=== PATIENT | female | born 1945 | race Caucasian/White ===

== ENCOUNTER 2018-12-06 07:35 | Emergency (ER) | payer OTHER ==
[2018-12-06] MEDS ORDERED: KETOROLAC 30 MG/ML INJ ONE (08:17)
[2018-12-06] MEDS ORDERED: HYDROCODONE/APAP 5/325 MG TAB ONE (08:17)
--- NOTE | 2018-12-06 09:26 | ER ---
Nurse's Notes [facility] Name: Sierra Norton Age: 73 yrs Sex: Female : 1945 Arrival Date: 12/06/2018 Time: 07:37 Bed 18 Private MD: Diagnosis: Radiculopathy, lumbar region Presentation: 12/06 07:50 Presenting complaint: Patient states: right hip pain radiating down front of right leg iw since yesterday, bent over to empty litter box and had increasing pain, had difficulty standing upright, also has intermittent numbness to right leg. Transition of care: patient was not received from another setting of care. Onset of symptoms was December 05, 2018. Risk Assessment: Do you want to hurt yourself or someone else? Patient reports no desire to harm self or others. Initial Sepsis Screen: Does the patient meet any 2 criteria? No. Patient's initial sepsis screen is negative. Does the patient have a suspected source of infection? No. Patient's initial sepsis screen is negative. Care prior to arrival: None. 07:50 Method Of Arrival: Ambulatory iw 07:50 Acuity: ADELIA 4 iw Historical: - Allergies: 07:54 No Known Allergies; iw - Home Meds: 07:54 biotin 10,000 mcg oral cap daily [Active]; Lipitor 40 mg Oral tab 1 tab once daily iw [Active]; gabapentin 300 mg oral cap 1 cap 3 times per day [Active]; duloxetine 30 mg oral cpDR 1 cap once daily [Active]; losartan 100 mg oral tab 1 tab once daily [Active]; amlodipine 2.5 mg tab 1 tab once daily [Active]; bisoprolol-hydrochlorothiazide 10-6.25 mg oral tab 1 tab once daily [Active]; - PMHx: 07:54 Hypertension; Hyperlipidemia; breast cancer; iw - PSHx: 07:54 double mastectomy; Knee surgery; Hysterectomy; iw - Immunization history:: Adult Immunizations. - Social history:: Smoking status: Patient/guardian denies using tobacco. - Ebola Screening: : Patient negative for fever greater than or equal to 101.5 degrees Fahrenheit, and additional compatible Ebola Virus Disease symptoms Patient denies exposure to infectious person Patient denies travel to an Ebola-affected area in the 21 days before illness onset No symptoms or risks identified at this time. Screenin:59 Abuse screen: Denies threats or abuse. Nutritional screening: No deficits noted. em Tuberculosis screening: No symptoms or risk factors identified. Fall Risk None identified. Assessment: 07:59 General: Appears in no apparent distress. uncomfortable, Behavior is calm, cooperative. em Pain: Complains of pain in right low back Pain radiates to right leg Pain currently is 10 out of 10 on a pain scale. Quality of pain is described as sharp, shooting. Neuro: Level of Consciousness is awake, alert, obeys commands, Oriented to person, place, time, situation, Appropriate for age Reports numbness in right leg. Cardiovascular: Capillary refill < 3 seconds Patient's skin is warm and dry. Respiratory: Airway is patent Respiratory effort is even, unlabored, Respiratory pattern is regular, symmetrical. Derm: Skin is intact, is healthy with good turgor, Skin is pink, warm \T\ dry. Musculoskeletal: Capillary refill < 3 seconds, Range of motion: intact in all extremities, Reports numbness in right leg. 08:20 Reassessment: Patient appears in no apparent distress at this time. I agree with above iw assessment by Terence Chaudhary LVN. 08:40 Reassessment: Patient appears in no apparent distress at this time. Patient and/or em family updated on plan of care and expected duration. Pain level reassessed. Patient is alert, oriented x 3, equal unlabored respirations, skin warm/dry/pink. Patient states feeling better. Vital Signs: 07:47 BP 145 / 91; Pulse 74; Resp 18; Pulse Ox 100% on R/A; Pain 10/10; em1 08:40 BP 138 / 87; Pulse 79; Resp 18; Pulse Ox 100% on R/A; Pain 8/10; em ED Course: 07:37 Patient arrived in ED. as 07:42 Aram Murphy MD is Attending Physician. gs 07:47 Terence Chaudhary LVN is Primary Nurse. em 07:52 Triage completed. iw 07:54 Arm band placed on. iw 07:59 Patient has correct armband on for positive identification. Placed in gown. Bed in low em position. Call light in reach. Adult w/ patient. Pulse ox on. NIBP on. 09:23 Herbert Barajas MD is Referral Physician. gs 09:32 No provider procedures requiring assistance completed. Patient did not have IV access em during this emergency room visit. Administered Medications: 08:07 Drug: TORadol 30 mg Route: IM; Site: left deltoid; em 08:40 Follow up: Response: No adverse reaction; Pain is decreased em 08:07 Drug: [place] 5 mg-325 mg 1 tabs Route: PO; em 08:40 Follow up: Response: No adverse reaction; Pain is decreased em Outcome: :25 Discharge ordered by . gs 09:32 Discharged to home ambulatory, with family. em 09:32 Condition: good 09:32 Discharge instructions given to patient, family, Instructed on discharge instructions, follow up and referral plans. medication usage, Demonstrated understanding of instructions, follow-up care, medications, Prescriptions given X 2. 09:35 Patient left the ED. em Signatures: Terence Chaudhary, SUPERVISOR MODERN [employer]ANGUAGES SUPERVISOR [employer]ERN LANGUAGES em Odilia Estes Irene, LOLITA RN Franklyn, Julio em1 Aram Murphy MD MD
--- NOTE | 2018-12-06 09:26 | EDPHYS ---
Physician Documentation [facility] Name: Sierra Norton Age: 73 yrs Sex: Female : 1945 Arrival Date: 12/06/2018 Time: 07:37 Bed 18 Private MD: ED Physician Aram Murphy HPI: 12/06 08:45 This 73 yrs old Female presents to ER via Ambulatory with complaints of Hip gs Pain. 08:48 The patient or guardian reports pain. The patient is able to self ambulate. The gs complaints affect the right leg and right low back. Onset: The symptoms/episode began/occurred yesterday. Modifying factors: the symptoms are aggravated by any movement. Associated signs and symptoms: Pertinent positives: numbness, of the right quadriceps. Severity of symptoms: At their worst the symptoms were moderate, in the emergency department the symptoms are unchanged. The patient has not experienced similar symptoms in the past. The patient has been recently seen by a physician: the patient's primary care provider, with different complaint(s). Historical: - Allergies: 07:54 No Known Allergies; iw - Home Meds: 07:54 biotin 10,000 mcg oral cap daily [Active]; Lipitor 40 mg Oral tab 1 tab once daily iw [Active]; gabapentin 300 mg oral cap 1 cap 3 times per day [Active]; duloxetine 30 mg oral cpDR 1 cap once daily [Active]; losartan 100 mg oral tab 1 tab once daily [Active]; amlodipine 2.5 mg tab 1 tab once daily [Active]; bisoprolol-hydrochlorothiazide 10-6.25 mg oral tab 1 tab once daily [Active]; - PMHx: 07:54 Hypertension; Hyperlipidemia; breast cancer; iw - PSHx: 07:54 double mastectomy; Knee surgery; Hysterectomy; iw - Immunization history:: Adult Immunizations. - Social history:: Smoking status: Patient/guardian denies using tobacco. - Ebola Screening: : Patient negative for fever greater than or equal to 101.5 degrees Fahrenheit, and additional compatible Ebola Virus Disease symptoms Patient denies exposure to infectious person Patient denies travel to an Ebola-affected area in the 21 days before illness onset No symptoms or risks identified at this time. ROS: 08:48 All other systems are negative. gs 08:48 Abdomen/GI: Negative for bowel incontinence. gs 08:48 : Negative for bladder incontinence. Exam: 08:48 Head/Face: Normocephalic, atraumatic. Eyes: Pupils equal round and reactive to light, gs extra-ocular motions intact. Lids and lashes normal. Conjunctiva and sclera are non-icteric and not injected. Cornea within normal limits. Periorbital areas with no swelling, redness, or edema. ENT: Nares patent. No nasal discharge, no septal abnormalities noted. Tympanic membranes are normal and external auditory canals are clear. Oropharynx with no redness, swelling, or masses, exudates, or evidence of obstruction, uvula midline. Mucous membranes moist. Neck: Trachea midline, no thyromegaly or masses palpated, and no cervical lymphadenopathy. Supple, full range of motion without nuchal rigidity, or vertebral point tenderness. No Meningismus. Chest/axilla: Normal chest wall appearance and motion. Nontender with no deformity. No lesions are appreciated. Cardiovascular: Regular rate and rhythm with a normal S1 and S2. No gallops, murmurs, or rubs. Normal PMI, no JVD. No pulse deficits. Respiratory: Lungs have equal breath sounds bilaterally, clear to auscultation and percussion. No rales, rhonchi or wheezes noted. No increased work of breathing, no retractions or nasal flaring. Abdomen/GI: Soft, non-tender, with normal bowel sounds. No distension or tympany. No guarding or rebound. No evidence of tenderness throughout. Skin: Warm, dry with normal turgor. Normal color with no rashes, no lesions, and no evidence of cellulitis. MS/ Extremity: Pulses equal, no cyanosis. Neurovascular intact. Full, normal range of motion. 08:48 Constitutional: The patient appears alert, awake, uncomfortable. 08:48 Back: muscle spasm, is appreciated in the right low back. 08:48 Neuro: Cranial nerves: CN II- XII are normal as tested, Cerebellar function: is grossly normal based on the patient's age, Motor: strength is 5/5 in all extremities, Sensation: pin prick is decreased in the right quadriceps. Vital Signs: 07:47 BP 145 / 91; Pulse 74; Resp 18; Pulse Ox 100% on R/A; Pain 10/10; em1 08:40 BP 138 / 87; Pulse 79; Resp 18; Pulse Ox 100% on R/A; Pain 8/10; em MDM: 07:56 Patient medically screened. gs 08:48 Differential diagnosis: annular tear,herniated disc,back sprain. Data reviewed: vital gs signs, nurses notes. Counseling: I had a detailed discussion with the patient and/or guardian regarding: the historical points, exam findings, and any diagnostic results supporting the discharge/admit diagnosis, the need for outpatient follow up. Response to treatment: the patient's symptoms have mildly improved after treatment. Physician consultation: Herbert Barajas MD and will see patient in office, later today, tomorrow. Administered Medications: 08:07 Drug: TORadol 30 mg Route: IM; Site: left deltoid; em 08:40 Follow up: Response: No adverse reaction; Pain is decreased em 08:07 Drug: [place] 5 mg-325 mg 1 tabs Route: PO; em 08:40 Follow up: Response: No adverse reaction; Pain is decreased em Disposition: 12/06/18 09:25 Discharged to Home. Impression: Radiculopathy, lumbar region. - Condition is Stable. - Discharge Instructions: Lumbosacral Radiculopathy, Back Exercises, [id number]. - Prescriptions for Prednisone 20 mg Oral Tablet - take 1 tablet by ORAL route once daily for 5 days; 5 tablet. Tylenol- Codeine #4 300-60 mg Oral Tablet - take 1 tablet by ORAL route every 6 hours As needed; 10 tablet. - Medication Reconciliation Form, Thank You Letter, Antibiotic Education, Prescription Opioid Use form. - Follow up: Herbert Barajas MD; When: 2 - 3 days; Reason: Re-evaluation by your physician. Signatures: Terence Chaudhary, PULP HOUSE SUPERVISOR PULP HOUSE SUPERVISOR em Marcia Tse, LOLITA RN iw Aram Murphy MD MD gs Corrections: (The following items were deleted from the chart) 09:35 09:25 12/06/2018 09:25 Discharged to Home. Impression: Radiculopathy, lumbar region. em Condition is Stable. Forms are Medication Reconciliation Form, Thank You Letter, Antibiotic Education, Prescription Opioid Use. Follow up: Herbert Barajas; When: 2 - 3 days; Reason: Re-evaluation by your physician. gs
== END 2018-12-06 09:35 | disposition home or self-care (01) ==
LOC: ER 07:35
DX: M54.16 Radiculopathy, lumbar region (principal); I10 Essential (primary) hypertension; E78.5 Hyperlipidemia, unspecified; Z85.3 Personal history of malignant neoplasm of breast; Z90.13 Acquired absence of bilateral breasts and nipples
CPT/HCPCS: 96372; 99283

== ENCOUNTER 2021-05-09 06:21 | Day surgery (SDC) | payer OTHER ==
[2021-05-04 11:30] LABS: Protime INR 0.94
[2021-05-09] MEDS ORDERED: LIDOCAINE 1% 20 ML MDV ONE (06:46)
[2021-05-09] MEDS ORDERED: MIDAZOLAM HCL 2 MG/2 ML INJ ONE ×2 (06:46→07:42)
[2021-05-09] MEDS ORDERED: HEPA 1000U/500MLS 1,000 UNIT/500 ML BAG IV ONE (06:46)
[2021-05-09] MEDS ORDERED: ATROPINE SULF 1 MG/10 ML SYR IV ONE (06:47)
[2021-05-09] MEDS ORDERED: FENTANYL CITR 100 MCG/2 ML ONE (06:47)
[2021-05-09] MEDS ORDERED: NA CHLORIDE 0.9% 0 ML ONE (06:48)
[2021-05-09] MEDS ORDERED: NA CHLORIDE 0.9% 500 ML ONE (06:49)
[2021-05-09] MEDS ORDERED: NITROGLYCERIN 100 MCG/ML SYR (for cath lab use only) IV ONE (07:25)
[2021-05-09] MEDS ORDERED: NITROGLYCERIN/D5W 0 MG/0 ML BTL IV ONE (07:25)
--- NOTE | 2021-05-09 08:20 | OP ---
Surgeon: Dante Pearl MD Customer Professional: Elza Greene. The patient admitted to my service to the clam bed laborer today on 05/09/2021. She underwent a left heart c atheterization with selective coronary arteriogram. Indication: Unstable angina and shortness of breath. The patient has multiple cardiac risk factors including hypertension, dyslipidemia. Procedure In Detail: In the clam bed laborer, she was prepped and draped in routine sterile fashion. Given Versed and fentanyl for sedation. A 6-Hungarian sheath introduced in the right common femoral artery breaux ccessfully using the Seldinger technique. Angiography there was normal. Angio-Seal was used to clos e the case. Cynthia catheters 6-Hungarian left and right were used to cannulate the left main and right main respectively. She was right dominant. She had diffuse plaquing throughout the RCA, circumflex , and distal LAD without any focal stenosis. There were no complications. Blood Loss: 5 mL. Postoperative Diagnosis: Mild coronary artery disease. Plan: To continue medical therapy. Increase statin dose. She has an echo pending in the office in the near future. May need pulmonary function test to rule out any lung issues. Anesthesia: Total conscious sedation was 45 minutes. Plan: The patient remained in the hospital for 2 hours of bedrest. She will go home after that and see me in the office in the next 2 weeks. NICOLETTE/JUDIT Voice ID: [id number] Report ID: [id number]
[2021-05-09 09:52] VITALS: BP 138/66; TEMP 98.7; O2SAT 97
== END 2021-05-09 10:00 | disposition home or self-care (01) ==
LOC: CCL 06:21
DX: I25.110 Atherosclerotic heart disease of native coronary artery with unstable angina pectoris (principal); I10 Essential (primary) hypertension; E78.2 Mixed hyperlipidemia; E11.9 Type 2 diabetes mellitus without complications; Z87.891 Personal history of nicotine dependence; Z20.822 Contact with and (suspected) exposure to COVID-19; Z82.49 Family history of ischemic heart disease and other diseases of the circulatory system
CPT/HCPCS: 36415; 85610; 82947; 85730; 93454; U0002; C1893; C1760; J2250; J3010; J7040; J1644; J0583